=== PATIENT | male | born 1955 | race Hispanic/Latino ===

== ENCOUNTER 2025-06-12 05:57 | Day surgery (SDC) | payer OTHER ==
[2025-06-10 09:49] LABS: IMMATURE GRANULOCYTE ABSOLUTE 0.02 K/uL (0-1); NUCLEATED RED BLOOD CELLS 0.0 % (0.0-0.19); PLATELET COUNT (AUTO) 296 K/uL (130-400); RED BLOOD CELL COUNT(AUTO) 4.51 MIL/uL (4.50-6.20); RED CELL DISTRIBUTION WIDTH 12.7 % (11.0-15.5); WHITE BLOOD COUNT (AUTO) 9.4 K/uL (4.8-10.8)
[2025-06-10 09:50] VITALS: BP 167/68; PULSE 66; RESP 13; TEMP 97.4
[2025-06-10 09:56] LABS: CREATININE 0.7 mg/dL (0.5-1.3); GLOMERULAR FILTR. RATE CALC 99.0 mL/min (>90); GLUCOSE,RANDOM 207.0 mg/dL (70-105); SODIUM SERUM 136.0 mmol/L (136-145); UREA NITROGEN, BLOOD 7.0 mg/dL (7-18)
[2025-06-10 10:04] LABS: INR 1.09 (0.85-1.15)
--- NOTE | 2025-06-10 12:20 | EKG ---
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
--- NOTE | 2025-06-10 19:54 | HMCIMG ---
EXAM: XR Chest, 1 View. CLINICAL HISTORY: 69-year-old male, preoperative evaluation. COMPARISON: None provided. FINDINGS: LUNGS: Mild bilateral peribronchial thickening. Question of early bronchitis. Some interstitial lung opacities are seen. Possible fibrotic changes. Correlate clinically. PLEURAL SPACES: No pleural effusion or pneumothorax. HEART: The heart size is normal. BONES: No acute osseous abnormality. IMPRESSION: 1. Mild bilateral peribronchial thickening, suggestive of early bronchitis. Correlate clinically. 2. Interstitial lung opacities with possible fibrotic changes. Correlate clinically. /[place]
--- NOTE | 2025-06-11 15:39 | NUR ---
RE: CXR REPORTED CXR RESULTS TO DENISA ONEIL/DR KRAMER. PATIENT ASYMPTOMATIC. NO NEW ORDERS RECEIVED.
[~2025-06-12] VITALS: Ht 177.8 cm; Wt 69.8 kg
[2025-06-12] VITALS (11 sets, daily range): BP systolic 133–161; BP diastolic 62–71; PULSE 68–83; RESP 14–24; TEMP 96.9–97.6
[~2025-06-12 05:57] MED LIST: AMLO-257 PO; ASPI-1443 PO; ATOR40TA69 PO; GABA-529 PO; GLIM2TAB30 PO; LISI20TA24 PO; METF-446 PO
[2025-06-12] MEDS: 0.9%NACL 1000ML 1,000 ML IV SCH (06:37)
[2025-06-12] MEDS ORDERED: SODIUM BICARB 50MEQ 50ML VIAL 50 ML ONE (08:00)
[2025-06-12] MEDS ORDERED: HEParin-NS 1,000 UNIT/500 ML 1,000 ML IV ONE (08:00)
[2025-06-12] MEDS ORDERED: LIDOCAINE HCL 400MG/20ML VIAL ONE (08:00)
[2025-06-12] MEDS ORDERED: IOHEXOL 350 MG/ML 100ML INFUS..BTL IV ONE ×2 (08:00→08:12)
[2025-06-12] MEDS ORDERED: NITROGLYCERIN 50MG VIAL ONE (08:01)
[2025-06-12] MEDS ORDERED: MIDAZOLAM HCL 1 MG/ML 2ML VIAL ONE (08:04)
[2025-06-12] MEDS ORDERED: IOHEXOL-350 50ML VIAL IV ONE (08:13)
--- NOTE | 2025-06-12 08:54 | PRN ---
CORONARY ARTERIOGRAM LEFT VENTRICULAR CINEANGIOGRAM BILATERAL CEREBRAL ARTERIOGRAM INDICATION: [id number] CORONARY CALCIUM SCORE GREATER THAN 80% LEFT INTERNAL CAROTID STENOSIS BY DOPPLER TECHNIQUE: Patient was brought to the lab in a fasting state after informed consent and sedated with 1 mg Versed and 50 mcg fentanyl. Under local anesthesia with 1% lidocaine using micropuncture technique with fluoroscopic and ultrasound guidance the right common femoral artery was punctured anteriorly and a six [place] sheath was inserted. Left anterior descending coronary was cannulated with a six [place] 4 cm left Glenn and left anterior descending angiograms were obtained in multiple projections. An exchange was made for a six [place] 5 cm left Glenn with which we engaged the left circumflex and obtain left circumflex angiograms in multiple projections. We exchanged for a six [place] JR4 and engaged the right coronary for right coronary arteriogram in multiple projections. We then engaged the innominate and ultimately cannulated the right common carotid and obtained a right cerebral arteriogram in AP, CLEANING, right lateral and KARL projections. We then engaged the left subclavian and obtained a single AP left vertebral arteriogram. We then exchanged for a Suarez one catheter with which we engaged the left carotid and obtain left carotid angiogram and cerebral arteriogram in AP, KARL, left lateral and CLEANING projections. We then exchanged for a six [place] angled pigtail and cannulated the left ventricle, measured pressures and performed ventriculography in CLEANING projection. After a pullback recording we removed the catheter and close the arteriotomy with Perclose. A total of 220 mL contrast was used and the patient was transferred from the lab in stable condition. Results: Hemodynamics: LVEDP was five before angiography and 11 after. LV systolic pressure was 131 with aortic root pressure 129/45, mean 77. Ventriculography: Left ventricular cineangiography demonstrates a hyperdynamic EF of 70-75% with a competent mitral valve and no wall motion abnormalities. Extensive coronary calcification is observed. Coronary Arteriography: Selective coronary arteriography demonstrates a right-dominant system. The right coronary supplies a posterior descending and a small posterolateral branch and is notable for 30% ostial narrowing, 30% narrowing after the conus branch, 75% calcified narrowing just after the right ventricular marginal branch, and a tubular 75% calcified narrowing at the acute margin. The left main is very short, almost a double ostium, in the LAD and circumflex are large diameter so each left coronary was cannulated individually as described above. The left anterior descending is narrowed by 90% by a calcified bulky eccentric stenosis with minimal ulceration about 5 mm from the origin of the LAD. After the diagonal there is a calcified radiolucent 50% narrowing in the mid LAD and at the level of the 2nd diagonal there is a tubular radiolucent calcified 50% bifurcation stenosis. Distally the LAD wraps the apex and supplies the apical 4th of the inferior groove. The left circumflex supplies a very large ramus that in effect constitutes most of the circumflex distribution. This bifurcates twice as it courses over the lateral wall to the apex. After the ramus there is a 30% narrowing in a relatively smaller circumflex system which is comprised of two tiny obtuse marginals and a very small posterolateral branch. Cerebral arteriography: The right common carotid artery is free of fixed obstructive disease. The right external carotid artery is notable for 20% plaque near its origin. The right internal carotid artery is notable for 20% plaque at its origin. The right intracranial vessels are free of high-grade disease. The left common carotid is free of disease. The left external carotid is free of high-grade disease. The left internal carotid is nearby 90% near its origin and this is a discrete lesion. The left intracranial vessels are free of high-grade disease. Conclusions: Although the patient is asymptomatic, he is at high-risk for stroke and lethal myocardial infarct or cardiac arrest because of critical left internal carotid disease and critical proximal LAD stenosis. Right coronary disease may also require intervention. KANDACE KRAMER MD Jun 12, 2025 08:54
[2025-06-12] MEDS ORDERED: 0.9%NACL 1000ML 1,000 ML IV SCH (09:00)
--- NOTE | 2025-06-12 09:15 | NUR ---
URINARY: VOIDED 275CC CLEAR YELLOW COLOR URINE PER URINAL WITHOUT DIFFICULTY.
--- NOTE | 2025-06-12 11:20 | NUR ---
ACTIVITY/URINARY: ASSISTED TO STANDING POSITION WITHOUT COMPLAINING OF DIZZINESS. AMBULATED TO BATHROOM WITH ASSISTANCE AT SLOW STEADY GAIT. PT VOIDED QS YELLOW COLOR URINE IN TOILET. ASSISTED BACK TO BED.
== END 2025-06-12 13:40 | disposition home or self-care (01) ==
LOC: DAH 05:57
PROVIDERS: ATTEND Internal Medicine Cardiovascular Disease
DX: I65.22 Occlusion and stenosis of left carotid artery (principal); I25.84 Coronary atherosclerosis due to calcified coronary lesion; I25.10 Atherosclerotic heart disease of native coronary artery without angina pectoris; I25.83 Coronary atherosclerosis due to lipid rich plaque; E78.5 Hyperlipidemia, unspecified; E11.40 Type 2 diabetes mellitus with diabetic neuropathy, unspecified; E11.51 Type 2 diabetes mellitus with diabetic peripheral angiopathy without gangrene; I11.9 Hypertensive heart disease without heart failure; Z79.82 Long term (current) use of aspirin; Z79.84 Long term (current) use of oral hypoglycemic drugs; Z79.899 Other long term (current) drug therapy
CPT/HCPCS: 80048; 83880; 85025; 85610; 85730; 36415; 71045; 93005; 93458; 36223; 82948 ×2; 99156; 99157 ×2; C1769; C1894 ×2; C1760; J3010; J3490 ×3; J7030; J2250; J0665; J1644; Q9967 ×3; A4215; A4222; A4221; A4663; A4216; A4606; Q9965 ×2; A4223 ×3; 36224; 96360; 96361

== ENCOUNTER 2025-08-12 08:44 | Day surgery (SDC) | payer OTHER ==
[2025-08-11 11:16] LABS: IMMATURE GRANULOCYTE ABSOLUTE 0.02 K/uL (0-1); NUCLEATED RED BLOOD CELLS 0.0 % (0.0-0.19); PLATELET COUNT (AUTO) 234 K/uL (130-400); RED BLOOD CELL COUNT(AUTO) 4.94 MIL/uL (4.50-6.20); RED CELL DISTRIBUTION WIDTH 12.3 % (11.0-15.5); WHITE BLOOD COUNT (AUTO) 8.7 K/uL (4.8-10.8)
[2025-08-11 11:22] LABS: CREATININE 1.0 mg/dL (0.5-1.3); GLOMERULAR FILTR. RATE CALC 81.0 mL/min (>90); GLUCOSE,RANDOM 210.0 mg/dL (70-105); SODIUM SERUM 134.0 mmol/L (136-145); UREA NITROGEN, BLOOD 7.0 mg/dL (7-18)
[2025-08-11 11:23] LABS: APPEARANCE,URINE CLEAR (CLEAR); GLUCOSE, URINE (UA) NEGATIVE (NEGATIVE); LEUKOCYTE ESTERASE ,URINE NEGATIVE Leu/uL (NEGATIVE); NITRATE,URINE NEGATIVE (NEGATIVE); OCCULT BLOOD,URINE NEGATIVE (NEGATIVE)
--- NOTE | 2025-08-11 11:29 | EKG ---
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 : 1955 Requested By: KANDACE KRAMER Order Number: [id number] Reading MD: Domenic Aquino Measurements Intervals [place] Rate: 70 P: -20 [place]: 258 QRS: -13 QRSD: 92 T: 99 QT: 403 QTc: 435 Interpretive Statements Sinus rhythm Atrial premature complex Prolonged [place] interval Nonspecific repol abnormality, lateral leads Borderline ST elevation, anterior leads Compared to ECG 06/10/2025 09:31:55 Atrial premature complex(es) now present Early repolarization now present ST (T wave) deviation still present Electronically Signed On 08-11-2025 12:17:03 DIRECTOR MARKETING by Domenic Aquino Please click the below link to view image of tracing.
[2025-08-11 11:33] VITALS: BP 163/75; PULSE 73; RESP 13; TEMP 97.5
[2025-08-11 11:42] LABS: ADD UA MICROSCOPIC NO
[2025-08-11 11:45] LABS: INR 1.08 (0.85-1.15)
--- NOTE | 2025-08-11 13:03 | HMCIMG ---
EXAM: CR Chest, 1 View. CLINICAL HISTORY: PRE OP COMPARISON: None provided. FINDINGS: LUNGS: There is no mass, infiltrate, or acute pulmonary abnormality. PLEURAL SPACES: No evidence of pleural effusion or pneumothorax. MEDIASTINUM: The cardiomediastinal silhouette is within normal limits. BONES: No acute osseous abnormality. IMPRESSION: No acute cardiopulmonary pathology is evident. /[place]
[~2025-08-12] VITALS: Ht 177.8 cm; Wt 72.1 kg
[2025-08-12] VITALS (9 sets, daily range): BP systolic 138–156; BP diastolic 59–67; PULSE 65–84; RESP 10–18; TEMP 97–97.4
[~2025-08-12 08:44] MED LIST changes: -GLIM2TAB30 PO; -LISI20TA24 PO; +LISI40TA15 PO
[2025-08-12] MEDS ORDERED: NITROGLYCERIN 50MG VIAL ONE (14:52)
[2025-08-12] MEDS ORDERED: HEParin-NS 1,000 UNIT/500 ML 1,000 ML IV ONE (14:52)
[2025-08-12] MEDS ORDERED: LIDOCAINE HCL 400MG/20ML VIAL ONE (14:53)
[2025-08-12] MEDS ORDERED: IOHEXOL 350 MG/ML 100ML INFUS..BTL IV ONE (14:53)
[2025-08-12] MEDS ORDERED: MIDAZOLAM HCL 1 MG/ML 2ML VIAL ONE (14:57)
[2025-08-12] MEDS ORDERED: HEParin-NS 1,000 UNIT/500 ML 500 ML IV ONE (15:20)
[2025-08-12] MEDS ORDERED: BIVALIRUDIN 250 MG/VIAL IV ONE (15:37)
[2025-08-12] MEDS ORDERED: IOHEXOL-350 50ML VIAL IV ONE (15:52)
--- NOTE | 2025-08-12 16:11 | PRN ---
IFR RIGHT CORONARY ARTERY AND LEFT ANTERIOR DESCENDING CORONARY ARTERY INDICATION: Patient has heavily calcified ostial LAD disease and mid LAD disease that appears to be critical, and [id number] disease in the vertical portion of the right coronary and at the acute margin which also appears significant. Requires revascularization in anticipation of general a nesthesia for TCAR. Technique: Patient was brought to the lab in a fasting state after informed consent and sedated with 1 mg Versed and 50 mcg fentanyl. Under local anesthesia with 1% lidocaine using micropuncture technique with ultrasound and fluoroscopic guidance the right common femoral artery was punctured over the mid head of the right femur and a six Czech sheath was inserted. Using a 3.5 Q guide we passed a IFR wire to the proximal and then to the mid LAD and measured IFR at both locations. We then exchanged for a six Czech JR4 guide and performed IFR in similar manner across the vertical right coronary lesion in the acute marginal lesion. We completed the procedure, removed the sheath, and close the arteriotomy with Angio-Seal. No complications occurred. Finding no significant lesion by IFR, we elected not to proceed with intervention. Results: The ostium of the LAD is heavily calcified and narrowed by 90% in previous angiograms, 80% on current angiograms, but the IFR was 0.95. In the mid LAD there was another calcified 50% stenosis with IFR 0.90. The right coronary is notable for ostial 30% calcified lesion, 75% calcified stenosis just after the right ventricular marginal, and 70% stenosis at the acute margin. Across both lesions the IFR was 1.0. Conclusions: Observed coronary disease does not require intervention and does not appear to be causing ischemia. KANDACE KRAMER MD Aug 12, 2025 16:11
[2025-08-12] MEDS ORDERED: 0.9% NACL 500ML IV.SOLN 500 ML IV SCH (16:30)
--- NOTE | 2025-08-12 19:31 | NUR ---
Right Femoral site clean, dry and intact. No sign of bleeding, bruising or hematoma. Instructed Patient and Family of precautions and expectations for discharge. All voiced understanding. Full and complete discharge instructions given to Patient and Family both verbally and in writing. Tolerated fluids and voided in bathroom. PIV removed with catheter tip intact. W/C to POV with Family to home.
== END 2025-08-12 19:30 | disposition home or self-care (01) ==
LOC: DAH 08:44
PROVIDERS: ATTEND Internal Medicine Cardiovascular Disease
DX: R94.39 Abnormal result of other cardiovascular function study (principal); I65.22 Occlusion and stenosis of left carotid artery; I25.10 Atherosclerotic heart disease of native coronary artery without angina pectoris; I10 Essential (primary) hypertension; E78.5 Hyperlipidemia, unspecified; E11.40 Type 2 diabetes mellitus with diabetic neuropathy, unspecified; F17.210 Nicotine dependence, cigarettes, uncomplicated; Z79.82 Long term (current) use of aspirin; Z79.899 Other long term (current) drug therapy
CPT/HCPCS: 80048; 83880; 85025; 85610; 85730; 81003; 36415; 71045; 93005; 99156; 99157 ×2; 93454; 93571; 93572; 82948; Q9965; A4223 ×3; C1887 ×4; C1894 ×2; C1760; C1769; J3010; J3490 ×2; J1644 ×3; J2250; Q9967 ×2; A4215; A4222; A4221; A4663; A4216; A4606; J0583